=== PATIENT | male | born 1960 | race Caucasian/White ===

== ENCOUNTER 2016-11-03 12:50 | Outpatient (CLI) | payer MEDICARE ==
--- NOTE | 2016-11-03 17:45 | Diagnostic Imaging Report ---
[facility] [id number] [facility].[address] [address] Report Submission Date: Nov 03, 2016 4:18:43 PM CDT Patient Study Name: MERCEDEZ CUEVAS Date: Nov 03, 2016 12:59:08 PM CDT Modality Type: CR Gender: M Description: UPPER EXTREMITY : 58 Institution: [facility] Physician: SCAR 4 views of the left elbow History: S/P LEFT ELBOW ARTHROPLASTY Findings: No comparison studies Patient is post left elbow arthroplasty, hardware is intact Deformity of the left distal humerus, proximal radius and ulna are seen with several osseous fragments at the elbow Impression: Intact left elbows arthroplasty hardware Postsurgical changes at the left distal humerus, proximal ulna and radius Electronically signed on Nov 03, 2016 4:18:43 PM CDT by: Cris LOZOYA
== END 2016-11-03 12:52 ==
LOC: RAD 12:50
PROVIDERS: ATTEND Physician Assistant
DX: M25.522 Pain in left elbow (principal)
CPT/HCPCS: 73070

== ENCOUNTER 2019-08-14 13:57 | Outpatient (CLI) | payer MEDICARE, OTHER ==
[2019-08-14] MEDS ORDERED: ALBUTEROL SULFATE 2.5 MG/3 ML AMPUL.NEB NEB ONE (14:04)
--- NOTE | 2019-08-14 17:11 | Diagnostic Imaging Report ---
PATIENT MR#: [id number] PATIENT PATIENT NAME: MERCEDEZ CUEVAS DATE OF : 1960 REFERRING PHYSICIAN: Amor Cunha EXAM DATE: 08/14/2019 ACCESSION NUMBER: [id number] EXAM DESCRIPTION: CHEST 2VIEW HISTORY: CHRONIC COUGH/COPD; PT STATES SMOKING HX OF 30 YEARS, PT STATES "CHRONIC BRONCHITIS; HX OF BYPASS AND STENT PLACEMENT 1 YEAR AGO. COMPARISON: None provided. CHEST RADIOGRAPH, FRONTAL AND LATERAL: Upper mediastinum: Not widened. Heart: No cardiomegaly. CABG clips noted. Lungs: 5 mm nodule of the right lower lobe. 6 mm nodule of the right middle lobe. Both nodules appear at least partially calcified. Flattening of the diaphragms suggests an element of COPD. No lobar infiltrate, pulmonary e mami, pneumothorax or significant effusion. Skeleton: Median sternotomy IMPRESSION: 1. Right lower and middle lobe nodules, which are at least partially calcified. However, in a patient with personal smoking history, low dose chest CT may be considered to establish baseline. 2. Early changes of COPD. 3. No acute pulmonary infiltrate. Read by: Dr. Abhay Lopez Transcribed by: Abhay Lopez Transcribed Date: 08/14/2019 5:10:13 PM Electronically signed by: Dr. Abhay Lopez Date signed: 08/14/2019 5:10:13 PM
== END 2019-08-14 14:07 ==
LOC: RT 13:57
PROVIDERS: ATTEND Family Medicine
DX: J43.1 Panlobular emphysema (principal); R05 Cough
CPT/HCPCS: 94060